=== PATIENT | female | born 1985 ===

== ENCOUNTER 2019-08-26 06:51 | Inpatient (IN) ==
[2019-08-26] MEDS ORDERED: ONDANSETRON 4 MG/2 ML VIAL IV PRN (07:23)
[2019-08-26] MEDS ORDERED: MEPERIDINE 50 MG/1 ML VIAL IV PRN (07:29)
[2019-08-26] MEDS ORDERED: BUTORPHANOL 2 MG/ML VIAL IV PRN (07:29)
[2019-08-26] MEDS ORDERED: OXYTOCIN/LR 20 UNIT/1,000 ML BAG IV SCH (07:30)
[2019-08-26] MEDS: LACTATED RINGERS 1,000 ML IV SCH ×2 (07:42→08:14)
[2019-08-26 07:48] LABS: Basophils % 0.4 % (0.0-0.8); Eosinophils # 0.1 10*3/uL (0.0-0.87); Eosinophils % 1.4 % (0.00-10.9); Hematocrit 33.7 VOL% (35.7-47.0); Immature Granulocytes % 0.8 %; Immature Granulocytes Absolute 0.06 #; Lymphocytes # 1.9 10*3/uL (1.4-4.0); Lymphocytes % 24.9 % (21.3-54.2); Mean Corpuscular HGB Conc 32.6 GM/DL (32-36); Mean Platelet Volume 11.5 FL (9.6-12.0); Monocytes % 7.7 % (1.7-12.7); Neutrophils % 64.8 % (38.7-73.9); Platelet Count 158 T/CUMM (130-400); Red Blood Count 4.01 MC/CUMM (3.8-5.5); Red Cell Distribution Width 14.5 % (9.3-17.3); White Blood Count 7.7 T/CUMM (4-12)
[2019-08-26] MEDS ORDERED: NALOXONE 0.4 MG/ML VIAL IV PRN (08:01)
[2019-08-26] MEDS ORDERED: PROMETHAZINE 25 MG/1 ML VIAL IM ONE (08:01)
[2019-08-26] MEDS ORDERED: FAMOTIDINE 20 MG/2 ML VIAL IV ONE (08:01)
[2019-08-26] MEDS ORDERED: hydrOXYzine HCL 25 MG/1 ML VIAL IM PRN (08:01)
[2019-08-26] MEDS ORDERED: diphenhydrAMINE 50 MG/1 ML VIAL IV PRN ×2 (08:01)
[2019-08-26] MEDS ORDERED: LACTATED RINGERS 1,000 ML IV ONE (08:01)
[2019-08-26] MEDS ORDERED: ePHEDrine 50 MG/ML AMP IV PRN (08:01)
[2019-08-26] MEDS ORDERED: CITRIC ACID/SODIUM CITRATE 30 ML UDCUP PO ONE (08:01)
[2019-08-26] MEDS ORDERED: ONDANSETRON 4 MG/2 ML VIAL IV ONE (08:01)
[2019-08-26 08:06] LABS: Alanine Aminotransferase 12 U/L (13-56); Albumin 2.2 G/DL (3.4-5.0); Alkaline Phosphatase 191 U/L (45-117); Aspartate Amino Transferase 21 U/L (0-37); Bilirubin,Total < 0.39 MG/DL (0.2-1.0); Blood Urea Nitrogen 11 MG/DL (7-18); Calcium 8.4 MG/DL (8.5-10.1); Estimated Glom Filtration Rate 151 ML/MIN; Glucose 79 MG/DL (74-106); Osmolality,Calculated 272.7 MOS/KG (273-304); Total Protein 6.2 G/DL (6.4-8.3)
[2019-08-26] MEDS ORDERED: fentaNYL 2 MCG/ROPIV 0.2% EPID 100 ML EPIDURAL SCH (08:30)
[2019-08-26 11:43] LABS: Apearance,Urine CLEAR (Clear); Bilirubin,Urine Negative (Negative); Blood, Urine Negative (Negative); Glucose,Urine (UA) Negative (Negative); Ketones,Urine Negative (Negative); Mucus,Urine Occasional /LPF (Occasional); Nitrite,Urine Negative (Negative); Protein,Urine Negative; RBC,Urine 2 /HPF (0-4); Squamous Epithelial Cell,Urine Occasional /HPF (0-10); Urine Color Straw (Yellow); Urine Specific Gravity 1.006 (1.001-1.035); Urine Urobilinogen < 2.0 EU/DL (0.2-1.0); WBC,Urine <1 /HPF (0-6)
[2019-08-26] MEDS ORDERED: miSOPROStoL 200 MCG TABLET ONE (12:02)
[2019-08-26] MEDS ORDERED: LIDOCAINE 1% 50 ML VIAL ONE (12:02)
[2019-08-26 12:44] LABS: Cord Venous Blood HCO3 21.9 MMOL/L; Cord Venous Blood PCO2 41.9 MMHG; Cord Venous Blood PO2 30.3
[2019-08-26] MEDS ORDERED: LANOLIN 50% CREAM 0.3 OZ TUBE TOP PRN (14:42)
[2019-08-26] MEDS ORDERED: BENZOCAINE 20%/MENTHOL 0.5% SPRAY 56 GM CAN TOP PRN (14:42)
[2019-08-26] MEDS ORDERED: WITCH HAZEL PADS 100/JAR TOP PRN (14:42)
[2019-08-26] MEDS ORDERED: OXYTOCIN/LR 20 UNIT/1,000 ML BAG IV ONE (14:42)
[2019-08-26] MEDS ORDERED: HYDROCORTISONE 2.5% RECTAL CREAM 30 GM TUBE TOP PRN (14:42)
[2019-08-26] MEDS ORDERED: ACETAMINOPHEN 325 MG TABLET PO PRN (14:42)
[2019-08-26] MEDS ORDERED: MEASLES/MUMPS/RUBELLA VACCINE 0.5 ML VIAL SUBCUT ONE (14:42)
[2019-08-26] MEDS ORDERED: RHO(D) IMMUNE GLOBULIN 300 MCG SYRINGE IM ONE (14:42)
[2019-08-26] MEDS ORDERED: oxyCODONE/ACETAMINOPHEN 5-325 MG TABLET PO PRN (14:42)
[2019-08-26] MEDS ORDERED: DIPH/TET/ACEL PERT BOOSTER VACCINE 0.5 ML VIAL IM ONE (14:42)
[2019-08-26] MEDS ORDERED: BISACODYL 10 MG SUPP RECTAL PRN (14:42)
[2019-08-26] MEDS: oxyCODONE/ACETAMINOPHEN 5-325 MG TABLET PO PRN (16:37)
[2019-08-26] MEDS: IBUPROFEN 800 MG TABLET PO PRN (16:37)
[2019-08-26] MEDS: DOCUSATE SODIUM 100 MG CAPSULE PO SCH (21:09)
[2019-08-27] MEDS: oxyCODONE/ACETAMINOPHEN 5-325 MG TABLET PO PRN ×3 (00:36→19:36)
[2019-08-27] MEDS: IBUPROFEN 800 MG TABLET PO PRN ×2 (00:36→11:17)
[2019-08-27 06:07] LABS: Basophils % 0.4 % (0.0-0.8); Eosinophils # 0.2 10*3/uL (0.0-0.87); Eosinophils % 2.1 % (0.00-10.9); Immature Granulocytes % 1.1 %; Immature Granulocytes Absolute 0.09 #; Lymphocytes # 2.4 10*3/uL (1.4-4.0); Lymphocytes % 28.8 % (21.3-54.2); Mean Corpuscular HGB Conc 32.4 GM/DL (32-36); Mean Corpuscular Volume 84.2 FL (87-102); Mean Platelet Volume 11.8 FL (9.6-12.0); Monocytes % 6.9 % (1.7-12.7); Neutrophils % 60.7 % (38.7-73.9); Platelet Count 140 T/CUMM (130-400); Red Blood Count 4.04 MC/CUMM (3.8-5.5); Red Cell Distribution Width 14.6 % (9.3-17.3); White Blood Count 8.2 T/CUMM (4-12)
[2019-08-27] MEDS: DOCUSATE SODIUM 100 MG CAPSULE PO SCH ×2 (07:25→20:21)
[2019-08-27] MEDS ORDERED: ALUMINUM/MAGNES/SIMETH MAX STR 30 ML UDCUP PO PRN (15:14)
[2019-08-28] MEDS: oxyCODONE/ACETAMINOPHEN 5-325 MG TABLET PO PRN ×2 (03:18→09:49)
[2019-08-28 07:12] VITALS: BP 141/80
[2019-08-28] MEDS: DOCUSATE SODIUM 100 MG CAPSULE PO SCH (09:48)
== END 2019-08-28 13:10 | disposition home or self-care (01) | DRG 807 ==
LOC: N.LDOUT 06:51 → N.LD 06:54 → N.OB 14:41
PROVIDERS: ADMIT Obstetrics & Gynecology; ATTEND Obstetrics & Gynecology